=== PATIENT | female | born 1960 | race Caucasian/White ===

== ENCOUNTER 2023-02-23 07:18 | Day surgery (SDC) | payer OTHER ==
[~2023-02-23] VITALS: Ht 165.1 cm; Wt 55.6 kg
[~2023-02-23 07:18] MED LIST: ALBUTEROL SULFATE 2.5MG/0.5ML INH NEB SOLN INH ONE; DILT240C83 PO; ERYT5OIN25 TOP; FOLI1TAB11 PO; LIDOCAINE PRES-FREE 2% 10ML AMP INH ONE; METH2.5T48 PO; OMEP-173 PO; SIMV20TA22 PO; VENL75CA47 PO
[2023-02-23] MEDS ORDERED: propofoL 200 MG/20 ML VIAL As Ordered ONE (07:48)
[2023-02-23] MEDS ORDERED: SUGAMMADEX SODIUM 500 MG/5 ML VIAL (BRIDION) As Ordered ONE (07:48)
[2023-02-23] MEDS ORDERED: LIDOCAINE 2% 100MG/5ML SDV (FOR ANES.) As Ordered ONE (07:48)
[2023-02-23] MEDS ORDERED: ROCURONIUM BROMIDE 50MG/5ML VIAL As Ordered ONE (07:48)
[2023-02-23] MEDS ORDERED: ONDANSETRON 4MG 2ML VIAL As Ordered ONE (07:48)
[2023-02-23] MEDS ORDERED: LR 1,000 ML IV SCH (07:50)
[2023-02-23] MEDS ORDERED: fentaNYL 100 MCG/2 ML INJECTION As Ordered ONE (07:52)
[2023-02-23] MEDS ORDERED: MIDAZOLAM INJ 2MG/2ML VIAL As Ordered ONE (07:52)
[2023-02-23] MEDS ORDERED: CETACAINE SPRAY 5GM As Ordered ONE (08:27)
[2023-02-23] MEDS ORDERED: THROMBIN 5,000 UNITS VIAL As Ordered ONE (08:27)
[2023-02-23] MEDS ORDERED: EPINEPHrine 1MG/10ML SYRINGE 1.5IN As Ordered ONE (08:27)
[2023-02-23] MEDS ORDERED: ACETAMINOPHEN 1000MG 100ML IV BAG As Ordered ONE (08:56)
[2023-02-23] MEDS ORDERED: oxyCODONE 5MG TAB PO PRN (10:15)
[2023-02-23] MEDS ORDERED: fentaNYL 100 MCG/2 ML INJECTION IV PRN (10:15)
[2023-02-23] MEDS ORDERED: ONDANSETRON 4MG 2ML VIAL IV PRN (10:15)
[2023-02-23] MEDS ORDERED: MEPERIDINE 25 MG/ML 1ML VIAL IV PRN (10:15)
[2023-02-23] MEDS ORDERED: HYDROMORPHONE HCL 0.5 MG/ 0.5 ML SYRINGE IV PRN (10:15)
[2023-02-23 10:45] VITALS: BP 160/78; TEMP 97.8; O2SAT 93
== END 2023-02-23 11:18 | disposition home or self-care (01) ==
LOC: M SDC 07:18
PROVIDERS: ATTEND Internal Medicine Critical Care Medicine
DX: J84.10 Pulmonary fibrosis, unspecified (principal); J39.8 Other specified diseases of upper respiratory tract; R87.610 Atypical squamous cells of undetermined significance on cytologic smear of cervix (ASC-US); F17.200 Nicotine dependence, unspecified, uncomplicated; Z79.02 Long term (current) use of antithrombotics/antiplatelets; Z79.899 Other long term (current) drug therapy; Z88.0 Allergy status to penicillin; Z88.8 Allergy status to other drugs, medicaments and biological substances; Z91.040 Latex allergy status
CPT/HCPCS: 31627; 31652; 31654; 71045; 76000; 88173; 88305; J0131; J0171; J1100; J2250; J2405; J3010